=== PATIENT | female | born 2005 | race Caucasian/White ===

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

== ENCOUNTER → 2025-04-09 | Outpatient (RCR) ==
[~2025-04-09] MED LIST changes: -PROZ20CA11 PO; +PROZ20CA25 PO
== END ==
LOC: M EMPSKH 03-24 11:14
PROVIDERS: ATTEND Family Medicine
DX: Z20.828 Contact with and (suspected) exposure to other viral communicable diseases (principal)